=== PATIENT | male | born 2000 | race Caucasian/White ===

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

== ENCOUNTER 2020-07-12 12:57 | Emergency (ER) | payer SELFPAY ==
[2020-07-12] MEDS ORDERED: Ondansetron 4 MG Tab.DIS PO ONE (13:11)
--- NOTE | 2020-07-12 13:27 | EDM.PDOC ---
ED HPI GENERAL MEDICAL PROBLEM - General Chief Complaint: Gastrointestinal Problem Stated Complaint: THROWING UP Time Seen by Provider: 07/12/20 13:01 Source of Information: Reports: Patient History Limitations: Reports: No Limitations - History of Present Illness INITIAL COMMENTS - FREE TEXT/NARRATIVE: HISTORY AND PHYSICAL: History of present illness: Patient is a 20-year-old male who presents to the emergency room with complaints of nausea and vomiting. He states he woke up this morning around 3 AM nauseated and since trying to eat or drink he has had a few bouts of vomiting. He states he has occasional episodes of nausea and vomiting and has been seen in the emergency room for this in the past. "Everything ends up being fine". Patient denies any fever, chills, headache, change in vision, syncope or near syncope. Denies any chest pain, back pain, shortness of breath or cough. Denies any abdominal pain, diarrhea, constipation or dysuria. Has not noted any blood in urine or stool. Patient has been eating and drinking appropriately. Denies any recent alcohol or drug abuse. Review of systems: As per history of present illness and below otherwise all systems reviewed and negative. Past medical history: As per history of present illness and as reviewed below otherwise noncontributory. Surgical history: As per history of present illness and as reviewed below otherwise noncontributory. Social history: See social history for further information Family history: As per history of present illness and as reviewed below otherwise noncontributory. Physical exam: General: Well developed and well nourished. Alert and orientated x 3. Nontoxic in appearance and in no acute distress. Vital signs are stable and have been reviewed by me. Nursing notes were reviewed. HEENT: Atraumatic, normocephalic, pupils equal and reactive bilaterally, negative for conjunctival pallor or scleral icterus, mucous membranes moist, TMs normal bilaterally, throat clear, neck supple, nontender, trachea midline. No drooling or trismus noted. No meningeal signs. No hot potato voice noted. Lungs: Clear to auscultation bilaterally. No wheezes, rales, or rhonchi. Chest nontender. Normal work of breathing, no accessory muscles used. Heart: S1S2, regular rate and rhythm without overt murmur, gallops, or rubs. No JVD. No peripheral edema Abdomen: Soft, nondistended, nontender. Normoactive bowel sounds. Negative for masses or costovertebral tenderness. Skin: Intact, warm, dry. No lesions or rashes noted. Hematologic: No petechiae or purpra. Mucosa appropriate color and normal nail bed color and refill. Extremities: Atraumatic, moves all extremities per self without difficulty or deficits, negative for cords or calf pain. Neurovascular unremarkable. Neuro: Awake, alert, oriented. Cranial nerves II through XII unremarkable. Cerebellum unremarkable. Motor and sensory unremarkable throughout. Exam nonfocal. Psychiatric: Mood and affect are appropriate. Normal thought process. Answering questions appropriately. Notes: *This patient was seen and evaluated during the 2019 SARS-CoV-2 novel coronavirus pandemic period. Community viral transmission is ongoing at time of this encounter and the emergency department is operating under pandemic response procedures. Patient's physical exam is within normal limits. We did discuss doing diagnostics, IV fluids and IV Zofran. He states he prefers having Zofran ODT and declines wanting any diagnostics done. He reports he has been to the emergency room in the past for the same instance and "everything comes back normal". We will do Zofran and a PO challenge before pending discharge. Patient tolerated PO and is requesting discharge. Reassessment at the time of disposition demonstrates that the patient is in no acute distress. The patient is stable for discharge, counseling was provided and we discussed in great detail signs and symptoms that would prompt them to return to the Emergency Department. Medication, follow up and supportive care measures were reviewed and discussed. Voices understanding and is agreeable to plan of care. Denies any further questions or concerns at this time. Diagnostics: Declines Therapeutics: Zofran ODT Prescription: Zofran (#8) Impression: Nausea Plan: 1. Today you declined wanting any labs to be done today. If your symptoms should worsen, new symptoms develop or any of the signs and symptoms we discussed should arise please return to the emergency room or call 911 (if needed). 2. Zofran as needed for nausea. You can alternate Tylenol and ibuprofen as needed for pain and fever management. 3. We encourage you to follow up with your primary care provider and/or recommended specialist in the next few days for re-evaluation and further care/management. Definitive disposition and diagnosis as appropriate pending reevaluation and review of above. - Related Data Allergies Allergy/AdvReac Type Severity Reaction Status Date / Time No Known Allergies Allergy Verified 07/12/20 13:08 Home Meds: Home Meds . [No Known Home Meds] 07/10/19 [History] Past Medical History - Past Health History Medical/Surgical History: Denies Medical/Surgical History HEENT History: Reports: None Cardiovascular History: Reports: None Respiratory History: Reports: None Gastrointestinal History: Reports: None Genitourinary History: Reports: None Musculoskeletal History: Reports: None Neurological History: Reports: Concussion Psychiatric History: Reports: Anxiety Endocrine/Metabolic History: Reports: None Hematologic History: Reports: None Immunologic History: Reports: None Oncologic (Cancer) History: Reports: None Dermatologic History: Reports: None - Infectious Disease History Infectious Disease History: Reports: None - Past Surgical History HEENT Surgical History: Reports: Adenoidectomy, Tonsillectomy Social & Family History - Family History Family Medical History: No Pertinent Family History Cardiac: Reports: Hypertension Endocrine/Metabolic: Reports: Diabetes, type II - Tobacco Use Tobacco Use Status *Q: Never Tobacco User - Caffeine Use Caffeine Use: Reports: None - Recreational Drug Use Recreational Drug Use: No ED ROS GENERAL - Review of Systems Review Of Systems: Comprehensive ROS is negative, except as noted in HPI. ED EXAM, GI/ABD - Physical Exam Exam: See Below (See dictation) Course - Vital Signs Last Recorded V/S: Last Vital Signs Temp 97.5 F 07/12/20 13:09 Pulse 78 07/12/20 13:09 Resp 16 07/12/20 13:09 BP 121/51 L 07/12/20 13:09 Pulse Ox 98 07/12/20 13:09 - Orders/Labs/Meds Meds: Medications Discontinued Medications Generic Name Dose Route Start Last Admin Trade Name Freq PRN Reason Stop Dose Admin Ondansetron HCl 4 mg 07/12/20 13:11 Zofran Odt PO 07/12/20 13:12 ONETIME ONE Departure - Departure Time of Disposition: 13:27 Disposition: Home, Self-Care 01 Clinical Impression: Mild nausea - Discharge Information Instructions: Nausea, Adult, [id number] Referrals: PCP,Not In Area [Primary Care Provider] - Additional Instructions: The following information is given to patients seen in the emergency department who are being discharged to home. This information is to outline your options for follow-up care. We provide all patients seen in our emergency department with a follow-up referral. The need for follow-up, as well as the timing and circumstances, are variable depending upon the specifics of your emergency department visit. If you don't have a primary care physician on staff, we will provide you with a referral. We always advise you to contact your personal physician following an emergency department visit to inform them of the circumstance of the visit and for follow-up with them and/or the need for any referrals to a consulting specialist. The emergency department will also refer you to a specialist when appropriate. This referral assures that you have the opportunity for follow-up care with a specialist. All of these measure are taken in an effort to provide you with optimal care, which includes your follow-up. Under all circumstances we always encourage you to contact your private physician who remains a resource for coordinating your care. When calling for follow-up care, please make the office aware that this follow-up is from your recent emergency room visit. If for any reason you are refused follow-up, please contact the [facility] Emergency Department at and asked to speak to the emergency department charge nurse. [facility] [address] [place] [address] [id number] Thank you for choosing the [facility] emergency department in [place] for your medical needs today. It was a pleasure caring for you. Today you were seen in the emergency department for nausea and vomiting. 1. Today you declined wanting any labs to be done today. If your symptoms should worsen, new symptoms develop or any of the signs and symptoms we discussed should arise please return to the emergency room or call [phone] (if needed). 2. Zofran as needed for nausea. You can alternate Tylenol and ibuprofen as needed for pain and fever management. 3. We encourage you to follow up with your primary care provider and/or recommended specialist in the next few days for re-evaluation and further care/management. Sepsis Event Note (ED) - Evaluation Sepsis Screening Result: No Definite Risk - Focused Exam Vital Signs: Vital Signs Temp Pulse Resp BP Pulse Ox 07/12/20 13:09 97.5 F 78 16 121/51 L 98
[2020-07-12 13:57] VITALS: BP 120/70; PULSE 74
== END 2020-07-12 13:57 | disposition home or self-care (01) ==
LOC: MW.ED 12:57
DX: R11.2 Nausea with vomiting, unspecified (principal)
CPT/HCPCS: 99283; A9270

== ENCOUNTER 2020-07-30 15:00 | Emergency (ER) | payer SELFPAY ==
--- NOTE | 2020-07-30 15:23 | EDM.PDOC ---
ED HPI GENERAL MEDICAL PROBLEM - General Chief Complaint: Lower Extremity Injury/Pain Stated Complaint: RT ANKLE Time Seen by Provider: 07/30/20 15:03 Source of Information: Reports: Patient History Limitations: Reports: No Limitations - History of Present Illness INITIAL COMMENTS - FREE TEXT/NARRATIVE: Patient is a 20-year-old male presents to the ED with right ankle pain x1 day. Patient states that he was woke up by pain at 0300 on 07/29/20, states he was able to go back to sleep, and woke up with pain at 0700. He states he took 4 Aleve at this time without reduction of pain. Patient denies any inciting event while at work the previous day. Patient states his pain is constant, nonradiating, and is generalized in the right ankle. Pain is worst in the front of the ankle. Pain is provoked with any movement of the ankle and with bearing weight and wearing socks/shoes. Patient's family history is significant for gout. Right Ankle Pain Score (Numeric/FACES): 9 - Related Data Allergies Allergy/AdvReac Type Severity Reaction Status Date / Time No Known Allergies Allergy Verified 07/30/20 15:11 Home Meds: Home Meds Indomethacin 50 mg PO TID PRN 5 Days #15 capsule 07/30/20 [Rx] oxyCODONE HCl/Acetaminophen [Percocet 5-325 mg Tablet] 1 - 2 each PO Q6H PRN #18 tablet 07/30/20 [Rx] Past Medical History - Past Health History Medical/Surgical History: Denies Medical/Surgical History HEENT History: Reports: None Cardiovascular History: Reports: None Respiratory History: Reports: None Gastrointestinal History: Reports: None Genitourinary History: Reports: None Musculoskeletal History: Reports: None Neurological History: Reports: Concussion Psychiatric History: Reports: Anxiety Endocrine/Metabolic History: Reports: None Hematologic History: Reports: None Immunologic History: Reports: None Oncologic (Cancer) History: Reports: None Dermatologic History: Reports: None - Infectious Disease History Infectious Disease History: Reports: None - Past Surgical History HEENT Surgical History: Reports: Adenoidectomy, Tonsillectomy Social & Family History - Family History Family Medical History: No Pertinent Family History Cardiac: Reports: Hypertension Endocrine/Metabolic: Reports: Diabetes, type II - Tobacco Use Tobacco Use Status *Q: Current Every Day Tobacco User Years of Tobacco use: 5 Packs/Tins Daily: 0.5 - Caffeine Use Caffeine Use: Reports: None - Recreational Drug Use Recreational Drug Use: No Review of Systems - Review of Systems Review Of Systems: Comprehensive ROS is negative, except as noted in HPI. ED EXAM, GENERAL - Physical Exam Exam: See Below Exam Limited By: No Limitations General Appearance: Alert, WD/WN, No Apparent Distress Throat/Mouth: Normal Voice, No Airway Compromise Head: Atraumatic, Normocephalic Neck: Normal Inspection Respiratory/Chest: No Respiratory Distress, No Accessory Muscle Use Cardiovascular: Normal Peripheral Pulses, Regular Rate, Rhythm Extremities: Other (Range of motion of the right ankle is limited due to pain; however, patient is able to fully actively dorsiflex the right ankle with pain. Foot and calf for neurovascularly intact. Dorsalis pedis and posterior tibial pulses are strong and equal bilaterally.) Neurological: Alert, Normal Gait Psychiatric: Normal Affect, Normal Mood Skin Exam: Warm, Dry, Intact, Normal Color Course - Vital Signs Last Recorded V/S: Last Vital Signs Temp 97.1 F 07/30/20 15:12 Pulse 87 07/30/20 15:12 Resp 18 07/30/20 15:12 BP 140/64 07/30/20 15:12 Pulse Ox 98 07/30/20 15:12 - Orders/Labs/Meds Labs: Laboratory Tests 07/30/20 07/30/20 Range/Units 15:34 15:34 WBC 6.85 (4.0-11.0) K/uL RBC 4.46 L (4.50-5.90) M/uL Hgb 13.5 (13.0-17.0) g/dL Hct 40.9 (38.0-50.0) % MCV 91.7 (80.0-98.0) fL MCH 30.3 (27.0-32.0) pg MCHC 33.0 (31.0-37.0) g/dL RDW Std Deviation 47.4 (28.0-62.0) fl RDW Coeff of Velma 14 (11.0-15.0) % Plt Count 164 (150-400) K/uL MPV 11.70 (7.40-12.00) fL Neut % (Auto) 72.0 (48.0-80.0) % Lymph % (Auto) 22.9 (16.0-40.0) % Po[place]ett % (Auto) 4.7 (0.0-15.0) % Eos % (Auto) 0.1 (0.0-7.0) % Baso % (Auto) 0.3 (0.0-1.5) % Neut # (Auto) 4.9 (1.4-5.7) K/uL Lymph # (Auto) 1.6 (0.6-2.4) K/uL [place] # (Auto) 0.3 (0.0-0.8) K/uL Eos # (Auto) 0.0 (0.0-0.7) K/uL Baso # (Auto) 0.0 (0.0-0.1) K/uL Nucleated RBC % 0.0 /100WBC Nucleated RBCs # 0 K/uL Sodium 143 (136-148) mmol/L Potassium 3.7 (3.5-5.1) mmol/L Chloride 105 (98-107) mmol/L Carbon Dioxide 26.3 (21.0-32.0) mmol/L BUN 15 (7.0-18.0) mg/dL Creatinine 1.1 (0.8-1.3) mg/dL Est Cr Clr Drug Dosing 114.09 mL/min Estimated GFR (MDRD) > 60.0 ml/min Glucose 147 H (74-106) mg/dL Uric Acid 8.5 H (2.6-7.2) mg/dL Calcium 8.8 (8.5-10.1) mg/dL Meds: Medications Discontinued Medications Generic Name Dose Route Start Last Admin Trade Name Shemar PRN Reason Stop Dose Admin Indomethacin 50 mg 07/30/20 15:28 07/30/20 15:44 Indocin PO 07/30/20 15:29 50 mg ONETIME ONE Administration Oxycodone/Acetaminophen 2 tab 07/30/20 15:28 07/30/20 15:44 Percocet 325-5 Mg PO 07/30/20 15:29 Not Given ONETIME ONE - Re-Assessments/Exams Free Text/Narrative Re-Assessment/Exam: 07/30/20 15:37 We will get basic labs including uric acid level, will get x-ray of ankle. Will treat pain. We will follow up results and disposition. 07/30/20 16:28 Patient's labs remarkable for elevated uric acid level. Will discharge with pain medication and PMD follow-up. Departure - Departure Time of Disposition: 16:30 Disposition: Home, Self-Care 01 Condition: Good Clinical Impression: Gout Qualifiers: Gout site: ankle Gout etiology: unspecified cause Chronicity: acute Laterality: right Qualified Code(s): M10.9 - Gout, unspecified - Discharge Information Prescriptions: Indomethacin 50 mg PO TID PRN 5 Days #15 capsule PRN Reason: Pain oxyCODONE HCl/Acetaminophen [Percocet 5-325 mg Tablet] 1 - 2 each PO Q6H PRN #18 tablet PRN Reason: Pain Instructions: Low-Purine Eating Plan Referrals: PCP,None [Primary Care Provider] - Forms: ED Department Discharge Additional Instructions: Your joint pain is concerning for gout. Pain medicine has been sent to your pharmacy. You should follow-up with your primary care physician. For definitive diagnosis of gout you would need to have a joint aspiration which we typically do not do in the emergency department. The following information is given to patients seen in the emergency department who are being discharged to home. This information is to outline your options for follow-up care. We provide all patients seen in our emergency department with a follow-up referral. The need for follow-up, as well as the timing and circumstances, are variable depending upon the specifics of your emergency department visit. If you don't have a primary care physician on staff, we will provide you with a referral. We always advise you to contact your personal physician following an emergency department visit to inform them of the circumstance of the visit and for follow-up with them and/or the need for any referrals to a consulting specialist. The emergency department will also refer you to a specialist when appropriate. This referral assures that you have the opportunity for follow-up care with a specialist. All of these measure are taken in an effort to provide you with optimal care, which includes your follow-up. Under all circumstances we always encourage you to contact your private physician who remains a resource for coordinating your care. When calling for follow-up care, please make the office aware that this follow-up is from your recent emergency room visit. If for any reason you are refused follow-up, please contact the [facility] Emergency Department at and asked to speak to the emergency department charge nurse. Please follow up with your primary care physician. If you do not have a primary care physician, see below: [facility] [address] [place] [id number] [facility] [address] [place] [address] [facility] [address] [address] Sepsis Event Note (ED) - Evaluation Sepsis Screening Result: No Definite Risk - Focused Exam Vital Signs: Vital Signs Temp Pulse Resp BP Pulse Ox 07/30/20 15:12 97.1 F 87 18 140/64 98
[2020-07-30] MEDS ORDERED: Acetaminophen/oxyCODONE 325-5 MG Tab PO ONE (15:28)
[2020-07-30] MEDS ORDERED: Indomethacin 25 MG Cap PO ONE (15:28)
--- NOTE | 2020-07-30 15:58 | CR ---
INDICATION: Right ankle pain, no history of injury. TECHNIQUE: Right ankle radiographs, 3 views. COMPARISON: None available. FINDINGS: No dislocation or acute fracture. Ankle mortise congruent. Tibiotalar as well as the other imaged joint spaces are maintained. Soft tissues unremarkable. IMPRESSION: Negative right ankle radiographs. Dictated by Gene Brooke MD @ 07/30/2020 3:56:18 PM Dictated by: Gene Brooke MD @ 07/30/2020 15:56:24 (Electronically Signed)
[2020-07-30 16:19] LABS: BLOOD UREA NITROGEN,BUN 15 mg/dL (7.0-18.0); CARBON DIOXIDE,CO2 26.3 mmol/L (21.0-32.0); CHLORIDE,CL 105 mmol/L (98-107); GLUCOSE RANDOM 147 mg/dL (74-106); POTASSIUM,K 3.7 mmol/L (3.5-5.1); SODIUM,NA 143 mmol/L (136-148)
[2020-07-30 16:41] VITALS: BP 133/57; PULSE 77
== END 2020-07-30 16:42 | disposition home or self-care (01) ==
LOC: MW.ED 15:00
DX: M10.9 Gout, unspecified (principal); Z79.899 Other long term (current) drug therapy; Z72.0 Tobacco use
CPT/HCPCS: 36415; 73610; 80048; 84550; 85025; 99283; A9270

== ENCOUNTER 2020-10-29 19:05 | Emergency (ER) | payer SELFPAY ==
--- NOTE | 2020-10-29 19:12 | EDM.PDOC ---
ED HPI GENERAL MEDICAL PROBLEM - General Chief Complaint: General Stated Complaint: POSSIBLE FRACTURED RT HAND Time Seen by Provider: 10/29/20 19:07 Source of Information: Reports: Patient History Limitations: Reports: No Limitations - History of Present Illness INITIAL COMMENTS - FREE TEXT/NARRATIVE: 20-year-old male past medical history anxiety presents for right hand injury. Patient states that he was using his right hand at work to turn a wrench when he slipped hitting his hand with a large amount of force on a metal frame. He endorses pain in the dorsum of the right hand and right wrist. He notes pain with movement of the wrist. No loss of muscle strength. Denies any other injuries. Right Hand Pain Score (Numeric/FACES): 9 - Related Data Allergies Allergy/AdvReac Type Severity Reaction Status Date / Time No Known Allergies Allergy Verified 10/29/20 19:12 Home Meds: Home Meds Indomethacin 50 mg PO TID PRN 5 Days #15 capsule 07/30/20 [Rx] oxyCODONE HCl/Acetaminophen [Percocet 5-325 mg Tablet] 1 - 2 each PO Q6H PRN #18 tablet 07/30/20 [Rx] Past Medical History - Past Health History Medical/Surgical History: Denies Medical/Surgical History HEENT History: Reports: None Cardiovascular History: Reports: None Respiratory History: Reports: None Gastrointestinal History: Reports: None Genitourinary History: Reports: None Musculoskeletal History: Reports: None Neurological History: Reports: Concussion Psychiatric History: Reports: Anxiety Endocrine/Metabolic History: Reports: None Hematologic History: Reports: None Immunologic History: Reports: None Oncologic (Cancer) History: Reports: None Dermatologic History: Reports: None - Infectious Disease History Infectious Disease History: Reports: None - Past Surgical History HEENT Surgical History: Reports: Adenoidectomy, Tonsillectomy Social & Family History - Family History Family Medical History: No Pertinent Family History Cardiac: Reports: Hypertension Endocrine/Metabolic: Reports: Diabetes, type II - Caffeine Use Caffeine Use: Reports: None ED ROS GENERAL - Review of Systems Review Of Systems: Comprehensive ROS is negative, except as noted in HPI. ED EXAM, GENERAL - Physical Exam Exam: See Below Exam Limited By: No Limitations General Appearance: Alert, WD/WN, No Apparent Distress Throat/Mouth: Normal Voice, No Airway Compromise Head: Atraumatic, Normocephalic Neck: Normal Inspection Respiratory/Chest: No Respiratory Distress, No Accessory Muscle Use Cardiovascular: Normal Peripheral Pulses Extremities: Normal Inspection, Other (Normal right radial pulse, normal color and sensation of right hand, reduced record tester strength secondary to pain, no overt deformities, no significant swelling) Neurological: Alert, Normal Gait Psychiatric: Normal Affect, Normal Mood Skin Exam: Warm, Dry, Intact, Normal Color Course - Vital Signs Last Recorded V/S: Last Vital Signs Temp 97.5 F 10/29/20 19:12 Pulse 78 10/29/20 19:12 Resp 17 10/29/20 19:12 BP 134/52 L 10/29/20 19:12 Pulse Ox 97 10/29/20 19:12 - Orders/Labs/Meds Orders: Active Orders 24 hr Category Date Time Status Kodi Bandage [RC] ONETIME Care 10/29/20 20:01 Ordered Meds: Medications Discontinued Medications Generic Name Dose Route Start Last Admin Trade Name Freq PRN Reason Stop Dose Admin Ketorolac Tromethamine 30 mg 10/29/20 19:18 10/29/20 19:27 Ketorolac 30 Mg/Ml Sdv IM 10/29/20 19:19 30 mg ONETIME ONE Administration - Re-Assessments/Exams Free Text/Narrative Re-Assessment/Exam: 10/29/20 19:19 We will treat patient's pain. Will get x-ray imaging of the hand and the wrist. Follow-up results and disposition accordingly. 10/29/20 20:02 No evidence of fracture on x-ray imaging. Will Kodi wrap for comfort for likely wrist sprain/contusion. Departure - Departure Time of Disposition: 20:03 Disposition: Home, Self-Care 01 Condition: Good Clinical Impression: Wrist sprain Qualifiers: Encounter type: initial encounter Laterality: right Qualified Code(s): S63.501A - Unspecified sprain of right wrist, initial encounter Contusion Qualifiers: Encounter type: initial encounter Contusion area: wrist Laterality: right Qualified Code(s): S60.211A - Contusion of right wrist, initial encounter - Discharge Information Instructions: Contusion, Wrist Sprain, Adult Referrals: Wilson Lopez MD [Primary Care Provider] - Forms: ED Department Discharge Additional Instructions: Your x-ray imaging is unremarkable. There is no evidence of a fracture or dislocation. You are likely experiencing a sprain of the wrist as well as a contusion due to hitting your wrist on a metal object. If you are having continued pain after 1 week and you should follow-up with a primary care physician for repeat imaging as rarely we can miss fractures on initial imaging when they are subtle. You can take Tylenol and Motrin for pain. You can take 1000 mg of Tylenol every 6 hours as well as 600 mg of Motrin every 6 hours. You can take these together or alternate between the 2. We have placed your wrist in an Kodi bandage for comfort and stability. You can wear this for the next couple of days to help. The following information is given to patients seen in the emergency department who are being discharged to home. This information is to outline your options for follow-up care. We provide all patients seen in our emergency department with a follow-up referral. The need for follow-up, as well as the timing and circumstances, are variable depending upon the specifics of your emergency department visit. If you don't have a primary care physician on staff, we will provide you with a referral. We always advise you to contact your personal physician following an emergency department visit to inform them of the circumstance of the visit and for follow-up with them and/or the need for any referrals to a consulting specialist. The emergency department will also refer you to a specialist when appropriate. This referral assures that you have the opportunity for follow-up care with a specialist. All of these measure are taken in an effort to provide you with optimal care, which includes your follow-up. Under all circumstances we always encourage you to contact your private physi russel who remains a resource for coordinating your care. When calling for follow- up care, please make the office aware that this follow-up is from your recent emergency room visit. If for any reason you are refused follow-up, please contact the [facility] Emergency Department at and asked to speak to the emergency department charge nurse. Please follow up with your primary care physician. If you do not have a primary care physician, see below: [facility] [address] [place] [id number] [facility] [address] [place] [address] [facility] [address] [place] [id number] Sepsis Event Note (ED) - Focused Exam Vital Signs: Vital Signs Temp Pulse Resp BP Pulse Ox 10/29/20 19:12 97.5 F 78 17 134/52 L 97 - My Orders Last 24 Hours: My Active Orders 10/29/20 20:01 Kodi Bandage [RC] ONETIME - Assessment/Plan Last 24 Hours: My Active Orders 10/29/20 20:01 Kodi Bandage [RC] ONETIME
[2020-10-29] MEDS ORDERED: Ketorolac 30 MG/ML SDV IM ONE (19:18)
--- NOTE | 2020-10-29 19:57 | CR ---
Indication: Hit hand, pain at 4th-5th metacarpals. Technique: Right hand 3 views. Comparison: Right hand radiographs 08/07/2017. Findings: No acute fracture or dislocation. Joint spaces are well preserved. Ulna minus variance. Soft tissues are unremarkable. Impression: No acute findings. Dictated by Allie Oliveira MD @ 10/29/2020 7:54:[address] Allie Oliveira @ Oct 29 2020 7:54PM
[2020-10-29 20:26] VITALS: BP 110/42; PULSE 83
== END 2020-10-29 20:18 | disposition home or self-care (01) ==
LOC: MW.ED 19:05
DX: S63.501A Unspecified sprain of right wrist, initial encounter (principal); W22.8XXA Striking against or struck by other objects, initial encounter; Y99.0 Civilian activity done for income or pay
CPT/HCPCS: 73130; 96372; 99283; J1885

== ENCOUNTER 2020-12-06 22:12 | Emergency (ER) | payer SELFPAY ==
[2020-12-06 22:30] VITALS: BP 108/58; PULSE 94
[2020-12-06] MEDS ORDERED: Iopamidol 755 MG/ML 500 ML Multipack Bottle IVPUSH STA (23:31)
--- NOTE | 2020-12-07 00:06 | CT ---
CT ANGIOGRAM LEFT LOWER EXTREMITY WITH CONTRAST, 12/06/2020 COMPARISON: None. CLINICAL HISTORY: 20-year-old male with possible left lower extremity dislocation. Evaluate for fracture or arterial injury. TECHNIQUE: Following administration of intravenous contrast, contiguous axial images were obtained through the abdomen and pelvis and lower extremities with imaging centered on the left lower extremity. 2D sagittal and coronal reformatted sequences were submitted. 120 mL Isovue 370 administered. NON-VASCULAR FINDINGS: Abdomen: The visualized abdomen is unremarkable. No bowel obstruction. No free fluid or free air. No acute bony lytic or blastic lesions. Pelvis: The visualized pelvis is unremarkable. The urinary bladder is unremarkable in a minimally-distended state. The prostate and seminal vesicles appear symmetric. No definite lymphadenopathy. No acute bony lytic or blastic lesions. No fractures. Left Lower Extremity: No soft tissue mass is identified. No acute bony lytic or blastic lesions. VASCULATURE: Aorta/Inflow: The visualized abdominal aorta appears normal. The visualized common, internal, and external iliac arteries are widely patent. Left Lower Extremity: The common femoral artery is patent. Deep femoral artery is patent. Superficial femoral artery is patent. Popliteal artery is patent. Three-vessel runoff to the foot. IMPRESSION: 1. No evidence of arterial injury in the left lower extremity. 2. No acute fractures identified. Ang Aragon M.D. [email or web address] LAURA/[email or web address]/Dictated by: Ang Aragon MD @ 12/07/2020 12:29:00 PM (Electronically Signed)
[2020-12-07] MEDS ORDERED: Ketorolac 15 MG/ML SDV IM ONE (00:07)
--- NOTE | 2020-12-07 00:15 | EDM.PDOC ---
ED HPI GENERAL MEDICAL PROBLEM - General Chief Complaint: Lower Extremity Injury/Pain Stated Complaint: PAIN IN KNEE Time Seen by Provider: 12/06/20 22:14 - History of Present Illness INITIAL COMMENTS - FREE TEXT/NARRATIVE: CHIEF COMPLAINT(S): Left knee pain HISTORY OF PRESENT ILLNESS: This is a 20-year-old man and without any significant past medical history who comes to the emergency department with a chief complaint of left knee pain. The patient states that approximately 4 hours prior to arrival he dropped a tire on his left leg/knee after unloading it from his truck. He did not feel any pops or clicks but he is experiencing some pain on the medial side of his left knee. He states that it is painful to walk on it but is able to walk on it. He states that he has some tingling in his left lower extremity. He denies any swelling, redness or warmth. He denies any lacerations. He states that he has tried Aleve approximately an hour prior to arrival which did not help. He describes the pain as sharp/shooting pain. He rates his pain as 10 out of 10. He does not have any radiation of this pain. He states that movement exacerbates it. There are no relieving factors other than keeping it still. REVIEW OF SYSTEMS: Constitutional: Denies fever, chills. Eyes: Denies eye pain Ears, Nose, Mouth, & Throat: Denies earache Cardiovascular: Denies chest pain Respiratory: Denies shortness of breath Gastrointestinal: Denies Nausea, vomiting, diarrhea, hematochezia. Genitourinary: Denies hematuria Skin:Denies a rash MSK: Positive for left knee pain neurological: Denies blurred vision Psychiatric: Denies depression PAST MEDICAL HISTORY: As per history of present illness and as reviewed below otherwise noncontributory. SURGICAL HISTORY: As per history of present illness and as reviewed below other long noncontributory. SOCIAL HISTORY: As per history of present illness and as reviewed below otherwise noncontributory. FAMILY HISTORY: As per history of present illness and as reviewed below other long noncontributory. EXAMINATION OF ORGAN SYSTEMS/BODY AREAS: Constitutional: Blood pressure is 108/58, heart rate 84, respiratory rate 18 with an oxygen saturation 97% on room air. Temperature 36.8 General: Overall well-appearing man who is in no acute distress Psychiatric: Appropriate mood and affect. Eyes: No scleral icterus or conjunctival erythema ENMT: Moist mucous membranes. No pharyngeal erythema Cardiovascular: Regular, rate, and rhythm. No gallops, murmurs, or rubs. Bilateral upper extremity and lower extremity pulses symmetric and intact. No peripheral edema. No JVD. Respiratory: Lungs clear to auscultation bilaterally. No wheezes, rales, or rhonchi. Gastrointestinal: Soft, non-tender, non-distended. Normoactive bowel sounds Genitourinary: No suprapubic tenderness Musculoskeletal: The patient is able to extend at the knee without any difficulties, the patient is also able to flex without any difficulties. There is no obvious deformity of the left knee. There is minimal swelling. There is no evidence of any abrasions or lacerations. There is tenderness to palpation along the medial side of the left knee otherwise no joint line tenderness, negative varus and valgus and negative anterior and posterior drawer. There is tenderness on the posterior aspect of the left knee without any bruising. Skin: No lesions or abrasions. Neurological: Alert, GCS 15 strength equal bilaterally. When testing sensation the patient reports increased sensation in his left lower extremity. MEDICAL DECISION MAKING AND COURSE IN THE ED WITH INTERPRETATION/REVIEW OF DI AGNOSTIC STUDIES: This is a 20-year-old man without any significant past medical history who comes to the emergency department with left knee injury who is neurovascularly intact. At this time it is uncertain if the patient had a posterior knee dislocation given the posterior pain on examination. There is no obvious deformity or abnormality of the knee however we will obtain a CT angio of the left lower extremity which will all also evaluate for fracture. We will provide the patient with Toradol for pain relief. I do not believe any labs or other imaging are indicated. The radiological images were viewed by myself along with reading the report from the radiologist. Left lower extremity CTA reveals no CT evidence of arterial injury, significant stenosis or occlusion. No acute osseous injuries or bony lesions identified. After imaging I did discuss results with the patient. At this time I did discuss with him symptomatic treatment. I did discuss that he should follow-up with orthopedics within 5 to 7 days. He is to return for any new or worsening symptoms. He was amenable discharge at this time and had no further questions DISPOSITION: The patient was discharged home in stable condition. The patient will follow up with orthopedics in 5 to 7 days CONDITION: Fair PROCEDURES: None FINAL IMPRESSION(S)/DIAGNOSES: 1. Acute left knee injury Yonis Anaya M.D. left knee Pain Score (Numeric/FACES): 10 - Related Data Allergies Allergy/AdvReac Type Severity Reaction Status Date / Time No Known Allergies Allergy Verified 12/06/20 22:27 Home Meds: Home Meds Indomethacin 50 mg PO TID PRN 5 Days #15 capsule 07/30/20 [Rx] oxyCODONE HCl/Acetaminophen [Percocet 5-325 mg Tablet] 1 - 2 each PO Q6H PRN #18 tablet 07/30/20 [Rx] Past Medical History - Past Health History Medical/Surgical History: Denies Medical/Surgical History HEENT History: Reports: None Cardiovascular History: Reports: None Respiratory History: Reports: None Gastrointestinal History: Reports: None Genitourinary History: Reports: None Musculoskeletal History: Reports: None Neurological History: Reports: Concussion Psychiatric History: Reports: Anxiety Endocrine/Metabolic History: Reports: None Insulin Pump Model and Heating Element Repairer: None Hematologic History: Reports: None Immunologic History: Reports: None Oncologic (Cancer) History: Reports: None Dermatologic History: Reports: None - Infectious Disease History Infectious Disease History: Reports: None - Past Surgical History HEENT Surgical History: Reports: Adenoidectomy, Tonsillectomy Social & Family History - Family History Family Medical History: No Pertinent Family History Cardiac: Reports: Hypertension Endocrine/Metabolic: Reports: Diabetes, type II - Caffeine Use Caffeine Use: Reports: Energy Drinks - Recreational Drug Use Recreational Drug Use: Yes Drug Use in Last 12 Months: Yes Recreational Drug Type: Reports: Marijuana/Hashish Review of Systems - Review of Systems Review Of Systems: See Below ED EXAM, GENERAL - Physical Exam Exam: See Below Course - Vital Signs Last Recorded V/S: Last Vital Signs Temp 36.8 C 12/06/20 22:25 Pulse 94 12/06/20 22:25 Resp 18 12/06/20 22:25 BP 108/58 L 12/06/20 22:25 Pulse Ox 97 12/06/20 22:25 - Orders/Labs/Meds Meds: Medications Discontinued Medications Generic Name Dose Route Start Last Admin Trade Name Freq PRN Reason Stop Dose Admin Iopamidol 120 ml 12/06/20 23:31 12/06/20 23:32 Iopamidol 755 Mg/Ml 500 Ml Multipack Bottle IVPUSH 12/06/20 23:32 120 ml ONETIME STA Administration Ketorolac Tromethamine 30 mg 12/07/20 00:07 12/07/20 00:11 Ketorolac 15 Mg/Ml Sdv IM 12/07/20 00:08 30 mg ONETIME ONE Administration Departure - Departure Time of Disposition: 00:14 Disposition: Home, Self-Care 01 Condition: Fair Clinical Impression: Knee injury - Discharge Information *PRESCRIPTION DRUG MONITORING PROGRAM REVIEWED*: No *COPY OF PRESCRIPTION DRUG MONITORING REPORT IN PATIENT ANDREWS: No Instructions: Knee Sprain, Adult, [id number] Referrals: Wilson Lopez MD [Primary Care Provider] - Forms: ED Department Discharge Additional Instructions: You evaluate today on an emergent basis. At this time your imaging was negative. As discussed CT is unable to evaluate for tendon or ligament injury. I do recommend that you keep your left leg elevated, use ice, Tylenol, Motrin, and rest. You may use an Kodi bandage to compress the left knee to help with swelling although there is not a lot of swelling on examination today. I would like you to follow-up with orthopedics within 5 to 7 days for further ev aluation. If you have any worsening symptoms you are welcome to return to the emergency department especially if there is redness, warmth and worsening pain. Please use: Tylenol 500-1000mg every 6 hours (DO NOT TAKE MORE THAN 4000mg in 1 day) Ibuprofen 400mg every 6 hours (Take with food as it can cause ulcers, GI upset) Example schedule: 8:00 AM (Tylenol 500-1000mg) 11:00 AM (Ibuprofen 400mg) 2:00 PM (Tylenol 500-1000mg) 5:00 PM (Ibuprofen 400mg) In addition to Tylenol and Motrin you may use over the counter creams such as Voltaren Cream or Lidocaine Cream (Lidoderm) as needed 4 times a day for symptomatic relief. Ice the area 20 minutes 4 times per day [facility] Professional Building [address] [place] [address], [address] [place] [address] The patient is informed of any results of their evaluation and diagnostic workup and all questions are answered. They are given discharge instructions and return precautions. The patient is stable for discharge. The patient states they understand and agree with the plan and that they will return if their symptoms get worse or if they have any new concerns. The following information is given to patients seen in the emergency department who are being discharged to home. This information is to outline your options for follow-up care. We provide all patients seen in our emergency department with a follow-up referral. The need for follow-up, as well as the timing and circumstances, are variable depending upon the specifics of your emergency department visit. If you don't have a primary care physician on staff, we will provide you with a referral. We always advise you to contact your personal physician following an emergency department visit to inform them of the circumstance of the visit and for follow-up with them and/or the need for any referrals to a consulting specialist. The emergency department will also refer you to a specialist when appropriate. This referral assures that you have the opportunity for follow-up care with a specialist. All of these measure are taken in an effort to provide you with optimal care, which includes your follow-up. Under all circumstances we always encourage you to contact your private physician who remains a resource for coordinating your care. When calling for follow-up care, please make the office aware that this follow-up is from your recent emergency room visit. If for any reason you are refused follow-up, please contact the [facility] Emergency Department at and asked to speak to the emergency department charge nurse. Sepsis Event Note (ED) - Evaluation Sepsis Screening Result: No Definite Risk - Focused Exam Vital Signs: Vital Signs Temp Pulse Resp BP Pulse Ox 12/06/20 22:25 36.8 C 94 18 108/58 L 97
== END 2020-12-07 00:23 | disposition home or self-care (01) ==
LOC: MW.ED 22:12
DX: S89.92XA Unspecified injury of left lower leg, initial encounter (principal); W20.8XXA Other cause of strike by thrown, projected or falling object, initial encounter
CPT/HCPCS: 73706; 96372; 99283; J1885; Q9967

== ENCOUNTER 2021-01-12 12:59 | Emergency (ER) | payer SELFPAY ==
--- NOTE | 2021-01-12 13:07 | EDM.PDOC ---
ED HPI GENERAL MEDICAL PROBLEM - General Chief Complaint: Chest Pain Stated Complaint: CHEST PAIN Time Seen by Provider: 01/12/21 13:00 Source of Information: Reports: Patient History Limitations: Reports: No Limitations - History of Present Illness INITIAL COMMENTS - FREE TEXT/NARRATIVE: HISTORY AND PHYSICAL: History of present illness: Patient is a 21-year-old male who presents to the emergency room with complaints of midsternal chest pain, diarrhea since 0800. He states he woke up this morning and felt well, shortly after he developed midsternal chest pain. Nothing makes the pain better or worse. Denies any recent injury, trauma or falls. Pain is not reproducible with palpation. He states he does have a history of anxiety although does not feel anxious or have any triggers at this time. Patient denies any fever, chills, headache, change in vision, syncope or near syncope. Denies any back pain, shortness of breath or cough. Denies any abdominal pain, nausea, vomiting, constipation or dysuria. Has not noted any blood in urine or stool. Patient has been eating and drinking appropriately. Review of systems: As per history of present illness and below otherwise all systems reviewed and negative. Past medical history: As per history of present illness and as reviewed below otherwise noncontributory. Surgical history: As per history of present illness and as reviewed below otherwise noncontributory. Social history: See social history for further information Family history: As per history of present illness and as reviewed below otherwise nonc ontributory. Physical exam: General: Well developed and well nourished 21-year-old male. Alert and orientated x 3. Nontoxic in appearance and in no acute distress. Vital signs are stable and have been reviewed by me. Nursing notes were reviewed. HEENT: Atraumatic, normocephalic, pupils equal and reactive bilaterally, negative for conjunctival pallor or scleral icterus, mucous membranes moist, tr achea midline. No drooling or trismus noted. No meningeal signs. No hot potato voice noted. Lungs: Clear to auscultation bilaterally. No wheezes, rales, or rhonchi. Chest nontender. Normal work of breathing, no accessory muscles used. Heart: S1S2, regular rate and rhythm without overt murmur, gallops, or rubs. No JVD. No peripheral edema Abdomen: Soft, nondistended, nontender. Normoactive bowel sounds. Negative for masses or costovertebral tenderness. Skin: Intact, warm, dry. No lesions or rashes noted. Hematologic: No petechiae or purpra. Mucosa appropriate color and normal nail bed color and refill. Extremities: Atraumatic, moves all extremities per self without difficulty or deficits, negative for cords or calf pain. Neurovascular unremarkable. Neuro: Awake, alert, oriented. Cranial nerves II through XII unremarkable. Cerebellum unremarkable. Motor and sensory unremarkable throughout. Exam nonfocal. Psychiatric: Mood and affect are appropriate. Normal thought process. Answering questions appropriately. Notes: *This patient was seen and evaluated during the 2019 SARS-CoV-2 novel coronavirus pandemic period. Community viral transmission is ongoing at time of this encounter and the emergency department is operating under pandemic response procedures. Patient is a 21-year-old male who presents to the emergency room with complaints of midsternal chest pain and diarrhea since 8 AM this morning. He states it does feel like an anxiety attack although he has no current life stressors that would be causing this. Physical exam is unremarkable. Vital signs are stable. We will do a cardiac work-up on him including TSH and Covid. Lab work is unremarkable patient states he feels anxious still. I will give him a dose of Ativan p.o. and reassess. Patient does feel improved. He does have a ride home. I have talked with the patient about today's findings, in addition to providing specific details for plan of care. Reassessment at the time of disposition demonstrates that the patient is in no acute distress. The patient is stable for discharge, counseling was provided and we discussed in great detail signs and symptoms that would prompt them to return to the Emergency Department. Medication, follow up and supportive care measures were reviewed and discussed. Voices understanding and is agreeable to plan of care. Denies any further questions or concerns at this time. Diagnostics: CBC, CMP, TSH, troponin, EKG, chest x-ray, COVID-19 Therapeutics: IV fluid, Ativan p.o. Prescription: None Impression: Nonspecific chest pain Plan: 1. You were evaluated today on an emergent basis. Your lab work, EKG and chest x-ray are normal. 2. You can alternate Tylenol and ibuprofen as needed for pain and fever management. 3. We encourage you to follow up with your primary care provider and/or recommended specialist in the next few days for re-evaluation and further care/management. 4. If your symptoms should worsen, new symptoms develop or any of the signs and symptoms we discussed should arise please return to the emergency room or call 911 (if needed). Definitive disposition and diagnosis as appropriate pending reevaluation and review of above. chest Pain Score (Numeric/FACES): 8 - Related Data Allergies Allergy/AdvReac Type Severity Reaction Status Date / Time No Known Allergies Allergy Verified 01/12/21 13:27 Home Meds: Home Meds . [No Known Home Meds] 01/12/21 [History] Past Medical History - Past Health History Medical/Surgical History: Denies Medical/Surgical History HEENT History: Reports: None Cardiovascular History: Reports: None Respiratory History: Reports: None Gastrointestinal History: Reports: None Genitourinary History: Reports: None Musculoskeletal History: Reports: None Neurological History: Reports: Concussion Psychiatric History: Reports: Anxiety Endocrine/Metabolic History: Reports: None Insulin Pump Model and Chicken Raiser: None Hematologic History: Reports: None Immunologic History: Reports: None Oncologic (Cancer) History: Reports: None Dermatologic History: Reports: None - Infectious Disease History Infectious Disease History: Reports: None - Past Surgical History HEENT Surgical History: Reports: Adenoidectomy, Tonsillectomy Social & Family History - Family History Family Medical History: No Pertinent Family History Cardiac: Reports: Hypertension Endocrine/Metabolic: Reports: Diabetes, type II - Caffeine Use Caffeine Use: Reports: Energy Drinks ED ROS GENERAL - Review of Systems Review Of Systems: Comprehensive ROS is negative, except as noted in HPI. ED EXAM, GENERAL - Physical Exam Exam: See Below (See dictation) Course - Vital Signs Last Recorded V/S: Last Vital Signs Temp 98.2 F 01/12/21 13:12 Pulse 88 01/12/21 13:12 Resp 18 01/12/21 13:12 BP 123/80 01/12/21 13:12 Pulse Ox 98 01/12/21 13:12 - Orders/Labs/Meds Orders: Active Orders 24 hr Category Date Time Status EKG Documentation Completion [RC] STAT Care 01/12/21 13:00 Active CORONAVIRUS COVID-19 IGLESIA [MOLEC] Stat Lab 01/12/21 13:30 Received Labs: Laboratory Tests 08/04/21 08/04/21 Range/Units 13:05 13:05 WBC 5.70 (4.0-11.0) K/uL RBC 4.61 (4.50-5.90) M/uL Hgb 13.8 (13.0-17.0) g/dL Hct 40.9 (38.0-50.0) % MCV 88.7 (80.0-98.0) fL MCH 29.9 (27.0-32.0) pg MCHC 33.7 (31.0-37.0) g/dL RDW Std Deviation 45.6 (28.0-62.0) fl RDW Coeff of Velma 14 (11.0-15.0) % Plt Count 200 (150-400) K/uL MPV 11.00 (7.40-12.00) fL Neut % (Auto) 58.9 (48.0-80.0) % Lymph % (Auto) 33.2 (16.0-40.0) % [place] % (Auto) 6.8 (0.0-15.0) % Eos % (Auto) 0.4 (0.0-7.0) % Baso % (Auto) 0.7 (0.0-1.5) % Neut # (Auto) 3.4 (1.4-5.7) K/uL Lymph # (Auto) 1.9 (0.6-2.4) K/uL [place] # (Auto) 0.4 (0.0-0.8) K/uL Eos # (Auto) 0.0 (0.0-0.7) K/uL Baso # (Auto) 0.0 (0.0-0.1) K/uL Nucleated RBC % 0.0 /100WBC Nucleated RBCs # 0 K/uL Sodium 143 (136-148) mmol/L Potassium 4.3 (3.5-5.1) mmol/L Chloride 107 (98-107) mmol/L Carbon Dioxide 27.3 (21.0-32.0) mmol/L BUN 9 (7.0-18.0) mg/dL Creatinine 1.0 (0.8-1.3) mg/dL Est Cr Clr Drug Dosing 82.64 mL/min Estimated GFR (MDRD) > 60.0 ml/min Glucose 93 (74-106) mg/dL Calcium 9.1 (8.5-10.1) mg/dL Total Bilirubin 0.3 (0.2-1.0) mg/dL AST 20 (15-37) IU/L ALT 26 (14-63) IU/L Alkaline Phosphatase 60 (46-116) U/L Troponin I < 0.050 (0.000-0.056) ng/mL Total Protein 7.7 (6.4-8.2) g/dL Albumin 4.5 (3.4-5.0) g/dL Globulin 3.2 (2.6-4.0) g/dL Albumin/Globulin Ratio 1.4 (0.9-1.6) TSH, Ultra Sensitive 1.34 (0.36-3.74) uIU/mL Meds: Medications Discontinued Medications Generic Name Dose Route Start Last Admin Trade Name Freq PRN Reason Stop Dose Admin Sodium Chloride 1,000 mls @ 999 mls/hr 01/12/21 13:09 01/12/21 13:18 Normal Saline IV 01/12/21 14:09 999 mls/hr STAT ONE Administration Ketorolac Tromethamine 30 mg 01/12/21 13:10 01/12/21 13:18 Ketorolac 30 Mg/Ml Sdv IVPUSH 01/12/21 13:11 30 mg ONETIME ONE Administration Lorazepam 1 mg 01/12/21 14:08 Lorazepam 1 Mg Tab PO 01/12/21 14:09 ONETIME ONE Departure - Departure Time of Disposition: 14:11 Disposition: Home, Self-Care 01 Clinical Impression: Nonspecific chest pain Instructions: Nonspecific Chest Pain, Adult, [id number] Forms: ED Department Discharge Additional Instructions: The following information is given to patients seen in the emergency department who are being discharged to home. This information is to outline your options for follow-up care. We provide all patients seen in our emergency department with a follow-up referral. The need for follow-up, as well as the timing and circumstances, are variable depending upon the specifics of your emergency department visit. If you don't have a primary care physician on staff, we will provide you with a referral. We always advise you to contact your personal physician following an emergency department visit to inform them of the circumstance of the visit and for follow-up with them and/or the need for any referrals to a consulting specialist. The emergency department will also refer you to a specialist when appropriate. This referral assures that you have the opportunity for follow-up care with a specialist. All of these measure are taken in an effort to provide you with optimal care, which includes your follow-up. Under all circumstances we always encourage you to contact your private physician who remains a resource for coordinating your care. When calling for follow-up care, please make the office aware that this follow-up is from your recent emergency room visit. If for any reason you are refused follow-up, please contact the [facility] Emergency Department at and asked to speak to the emergency department charge nurse. [facility] [address] [place] [id number] [place] [address] Thank you for choosing the [facility] emergency department in [place] for your medical needs today. It was a pleasure caring for you. Today you were seen in the emergency department for chest pain. 1. You were evaluated today on an emergent basis. Your lab work, EKG and chest x-ray are normal. 2. You can alternate Tylenol and ibuprofen as needed for pain and fever management. 3. We encourage you to follow up with your primary care provider and/or recommended specialist in the next few days for re-evaluation and further care/management. 4. If your symptoms should worsen, new symptoms develop or any of the signs and symptoms we discussed should arise please return to the emergency room or call 911 (if needed). Sepsis Event Note (ED) - Focused Exam Vital Signs: Vital Signs Temp Pulse Resp BP Pulse Ox 01/12/21 13:12 98.2 F 88 18 123/80 98 - My Orders Last 24 Hours: My Active Orders 01/12/21 13:00 EKG Documentation Completion [RC] STAT 01/12/21 13:30 CORONAVIRUS COVID-19 IGLESIA [MOLEC] Stat - Assessment/Plan Last 24 Hours: My Active Orders 01/12/21 13:00 EKG Documentation Completion [RC] STAT 01/12/21 13:30 CORONAVIRUS COVID-19 IGLESIA [MOLEC] Stat
[2021-01-12] MEDS ORDERED: Sodium Chloride 0.9% 1,000 ML IV ONE (13:09)
[2021-01-12] MEDS ORDERED: Ketorolac 30 MG/ML SDV IVPUSH ONE (13:10)
--- NOTE | 2021-01-12 13:26 | PCM.EKG ---
#1 Interpretation EKG Date: 01/12/21 Time: 13:05 Rhythm: NSR Rate (Beats/Min): 81 [place]: Normal P-Wave: Present QRS: Normal ST-T: Normal QT: Normal AK/PQ Interval: 153 EKG Interpretation Comments: normal EKG, non-ischemic
--- NOTE | 2021-01-12 13:44 | CR ---
INDICATION: Chest pain TECHNIQUE: Chest 1 views COMPARISON: January 10, 2019 FINDINGS: Cardiovascular and mediastinum: Heart size and vasculature are normal in caliber and appearance. Lungs and pleural spaces: Lungs are clear. No sign of infiltrate or mass. No sign of pleural effusion. No pneumothorax. Bones and soft tissues: No significant findings. IMPRESSION: No acute findings and no significant changes from the prior exam. No finding to explain chest pain. Dictated by Honorio Gutierrez MD @ 01/12/2021 1:43:[address] Honorio Gutierrez @ Jan 12 2021 1:43PM
[2021-01-12 13:52] LABS: BLOOD UREA NITROGEN,BUN 9 mg/dL (7.0-18.0); CARBON DIOXIDE,CO2 27.3 mmol/L (21.0-32.0); CHLORIDE,CL 107 mmol/L (98-107); GLUCOSE RANDOM 93 mg/dL (74-106); POTASSIUM,K 4.3 mmol/L (3.5-5.1); SODIUM,NA 143 mmol/L (136-148)
[2021-01-12] MEDS ORDERED: LORazepam 1 MG Tab PO ONE (14:08)
[2021-01-12 14:36] VITALS: BP 116/70; PULSE 91
== END 2021-01-12 14:30 | disposition home or self-care (01) ==
LOC: MW.ED 12:59
DX: R07.2 Precordial pain (principal); Z20.822 Contact with and (suspected) exposure to COVID-19
CPT/HCPCS: 36415; 71045; 80053; 84443; 84484; 85025; 87635; 93005; 96374; 99285; A9270; J1885; J7030; U0002

== ENCOUNTER 2021-10-19 11:07 | Emergency (ER) | payer OTHER ==
[2021-10-19] MEDS ORDERED: Sodium Chloride 0.9% 10 ML Syringe FLUSH PRN (11:34)
[2021-10-19] MEDS ORDERED: Sodium Chloride 0.9% 2.5 ML Syringe FLUSH PRN (11:34)
[2021-10-19 12:33] LABS: BLOOD UREA NITROGEN,BUN 13 mg/dL (7.0-18.0); CARBON DIOXIDE,CO2 26.2 mmol/L (21.0-32.0); CHLORIDE,CL 106 mmol/L (98-107); GLUCOSE RANDOM 96 mg/dL (74-106); LIPASE 54 U/L (73-393); POTASSIUM,K 4.3 mmol/L (3.5-5.1); SODIUM,NA 142 mmol/L (136-148)
[2021-10-19] MEDS ORDERED: Iopamidol 755 MG/ML 500 ML Multipack Bottle IVPUSH STA (13:06)
[2021-10-19] MEDS ORDERED: Morphine 4 MG/ML VIAL IVPUSH ONE (13:52)
[2021-10-19] MEDS ORDERED: Ondansetron 4 MG/2 ML SDV IVPUSH ONE (13:52)
[2021-10-19 16:24] VITALS: BP 120/97; PULSE 58
== END 2021-10-19 15:10 | disposition home or self-care (01) ==
LOC: MW.ED 11:07
DX: K62.5 Hemorrhage of anus and rectum (principal); R10.84 Generalized abdominal pain
CPT/HCPCS: 36415; 74177; 80053; 81003; 83690; 85014; 85018; 85025; 96374; 96375; 99285; J2270; J2405; J3490; Q9967

== ENCOUNTER 2022-04-21 05:21 | Emergency (ER) | payer OTHER ==
[2022-04-21 05:31] VITALS: BP 123/69; PULSE 76
== END 2022-04-21 05:39 | disposition home or self-care (01) ==
LOC: MW.ED 05:21
DX: K04.7 Periapical abscess without sinus (principal)
CPT/HCPCS: 99282

== ENCOUNTER 2022-05-01 09:06 | Emergency (ER) | payer OTHER ==
[2022-05-01] MEDS ORDERED: Morphine 2 MG/ML SYRINGE IM ONE (09:20)
[2022-05-01 11:22] VITALS: BP 113/65; PULSE 63
== END 2022-05-01 11:22 | disposition home or self-care (01) ==
LOC: MW.ED 09:06
DX: S49.91XA Unspecified injury of right shoulder and upper arm, initial encounter (principal); W01.0XXA Fall on same level from slipping, tripping and stumbling without subsequent striking against object, initial encounter
CPT/HCPCS: 73080; 73090; 73130; 96372; 99283; J2270

== ENCOUNTER 2022-05-08 09:56 | Emergency (ER) | payer OTHER ==
[2022-05-08 11:00] LABS: CORONAVIRUS COVID-19 NAA NEGATIVE (NEGATIVE); INFLUENZA A NAA NEGATIVE (NEGATIVE); INFLUENZA B NAA NEGATIVE (NEGATIVE); RESPIRATORY SYNCYTIAL VIR NAA NEGATIVE (NEGATIVE)
[2022-05-08 11:05] VITALS: BP 123/45; PULSE 61
== END 2022-05-08 11:19 | disposition home or self-care (01) ==
LOC: MW.ED 09:56
DX: R05.9 Cough, unspecified (principal); R19.7 Diarrhea, unspecified; R50.9 Fever, unspecified; Z72.0 Tobacco use; Z20.822 Contact with and (suspected) exposure to COVID-19
CPT/HCPCS: 0241U; 99283

== ENCOUNTER 2022-05-29 14:45 | Emergency (ER) | payer OTHER ==
[2022-05-29 15:46] VITALS: BP 135/72; PULSE 92
[2022-05-29] MEDS ORDERED: Ketorolac 60 MG/2 ML SDV IM ONE (16:05)
[2022-05-29] MEDS ORDERED: Acetaminophen/HYDROcodone 325-5 MG Tab PO ONE (16:05)
== END 2022-05-29 17:10 | disposition home or self-care (01) ==
LOC: MW.ED 14:45
DX: S02.5XXA Fracture of tooth (traumatic), initial encounter for closed fracture (principal); F17.210 Nicotine dependence, cigarettes, uncomplicated; W22.09XA Striking against other stationary object, initial encounter
CPT/HCPCS: 96372; 99282; J1885

== ENCOUNTER 2022-12-14 14:46 | Emergency (ER) | payer OTHER ==
[2022-12-14] MEDS ORDERED: Tetracaine HCl/PF 0.5% 4 ML Bottle EYELF STA (16:08)
[2022-12-14 17:13] VITALS: BP 130/64; PULSE 103
== END 2022-12-14 17:13 | disposition home or self-care (01) ==
LOC: MW.ED 14:46
DX: S05.02XA Injury of conjunctiva and corneal abrasion without foreign body, left eye, initial encounter (principal); F17.210 Nicotine dependence, cigarettes, uncomplicated
CPT/HCPCS: 99283; J3490

== ENCOUNTER 2023-12-03 10:00 | Emergency (ER) | payer OTHER ==
[2023-12-03 10:44] LABS: BASOPHILS ABSOLUTE AUTO 0.05 K/uL (0.00-0.20); BASOPHILS PERCENT AUTO 0.8 % (0.0-1.0); EOSINOPHILS ABSOLUTE AUTO 0.03 K/uL (0.00-0.45); EOSINOPHILS PERCENT AUTO 0.5 % (0.0-6.0); HEMATOCRIT 41.8 % (42.0-52.0); HEMOGLOBIN 14.3 g/dL (14.0-18.0); IMMATURE GRAN ABSOLUTE AUTO 0.02 K/uL (0.00-0.05); IMMATURE GRAN PERCENT AUTO 0.3 % (0.0-0.4); LYMPHOCYTES ABSOLUTE AUTO 1.81 K/uL (1.00-4.80); LYMPHOCYTES PERCENT AUTO 27.3 % (24.0-44.0); MEAN CORPUSCULAR HEMOGLOBIN 30.1 pg (28.0-32.0); MEAN CORPUSCULAR HGB CONC 34.2 g/dL (32.0-36.0); MEAN PLATELET VOLUME 10.7 fL (9.4-12.4); MONOCYTES ABSOLUTE AUTO 0.55 K/uL (0.00-0.80); MONOCYTES PERCENT AUTO 8.3 % (0.0-8.0); NEUTROPHILS ABSOLUTE AUTO 4.16 K/uL (1.80-7.70); NEUTROPHILS PERCENT AUTO 62.8 % (41.0-71.0); PLATELET COUNT,PLT 215 K/uL (150-400); RED BLOOD CELL COUNT 4.75 M/uL (4.52-5.90); WHITE BLOOD CELL COUNT,WBC 6.62 K/uL (3.9-11.3)
[2023-12-03] MEDS: Sodium Chloride 0.9% 1,000 ML IV STA (10:58)
[2023-12-03] MEDS: Ketorolac 30 MG/ML SDV IVPUSH STA (10:58)
[2023-12-03 11:00] LABS: INR 0.97 (0.86-1.11)
[2023-12-03 11:04] LABS: A/G RATIO 1.1 (0.9-1.6); ALBUMIN 4.1 g/dL (3.4-5.0); BILIRUBIN TOTAL 0.3 mg/dL (0.2-1.0); CALCIUM 9.4 mg/dL (8.5-10.1); CREATININE 1.1 mg/dL (0.8-1.3); EST CRCL DRUG DOSING (CG) 111.24 mL/min; POTASSIUM,K 4.5 mmol/L (3.5-5.1); PROTEIN TOTAL,TP 7.7 g/dL (6.4-8.2)
[2023-12-03] MEDS: Ondansetron 4 MG/2 ML SDV IVPUSH STA (11:10)
[2023-12-03] MEDS: Morphine 4 MG/ML Syringe IVPUSH STA (11:10)
[2023-12-03] MEDS: Iopamidol 755 MG/ML 500 ML Multipack Bottle IVPUSH STA (11:47)
[2023-12-03 12:49] VITALS: BP 113/61; PULSE 61
== END 2023-12-03 12:49 | disposition home or self-care (01) ==
LOC: MW.ED 10:00
DX: K52.9 Noninfective gastroenteritis and colitis, unspecified (principal); F17.210 Nicotine dependence, cigarettes, uncomplicated; Z79.899 Other long term (current) drug therapy; Z75.8 Other problems related to medical facilities and other health care
CPT/HCPCS: 36415; 74177; 80053; 83690; 85025; 85610; 96361; 96374; 96375; 99284; J1885; J2270; J2405; J7030; Q9967

== ENCOUNTER 2024-08-21 13:02 | Emergency (ER) | payer SELFPAY ==
[2024-08-21 13:23] VITALS: BP 113/45
[2024-08-21 13:23] LABS: BASOPHILS ABSOLUTE AUTO 0.02 K/uL (0.00-0.20); BASOPHILS PERCENT AUTO 0.1 % (0.0-1.0); EOSINOPHILS ABSOLUTE AUTO 0.02 K/uL (0.00-0.45); EOSINOPHILS PERCENT AUTO 0.1 % (0.0-6.0); HEMATOCRIT 47.6 % (42.0-52.0); HEMOGLOBIN 16.2 g/dL (14.0-18.0); IMMATURE GRAN ABSOLUTE AUTO 0.05 K/uL (0.00-0.05); IMMATURE GRAN PERCENT AUTO 0.4 % (0.0-0.4); LYMPHOCYTES ABSOLUTE AUTO 0.33 K/uL (1.00-4.80); LYMPHOCYTES PERCENT AUTO 2.4 % (24.0-44.0); MEAN CORPUSCULAR HEMOGLOBIN 29.9 pg (28.0-32.0); MEAN CORPUSCULAR VOLUME 87.8 fL (83.0-99.0); MONOCYTES ABSOLUTE AUTO 0.51 K/uL (0.00-0.80); MONOCYTES PERCENT AUTO 3.7 % (0.0-8.0); NEUTROPHILS ABSOLUTE AUTO 12.71 K/uL (1.80-7.70); NEUTROPHILS PERCENT AUTO 93.3 % (41.0-71.0); PLATELET COUNT,PLT 176 K/uL (150-400); RED BLOOD CELL COUNT 5.42 M/uL (4.52-5.90); WHITE BLOOD CELL COUNT,WBC 13.64 K/uL (3.9-11.3)
[2024-08-21] MEDS: Ketorolac 30 MG/ML SDV IVPUSH ONE (13:26)
[2024-08-21] MEDS: Sodium Chloride 0.9% 1,000 ML IV ONE ×2 (13:26→14:36)
[2024-08-21] MEDS: Ondansetron 4 MG/2 ML SDV IVPUSH ONE (13:26)
[2024-08-21] MEDS: Iopamidol 755 MG/ML 500 ML Multipack Bottle IVPUSH STA (13:40)
[2024-08-21 13:52] LABS: A/G RATIO 1.3 (0.9-1.6); ALBUMIN 4.8 g/dL (3.4-5.0); BILIRUBIN TOTAL 0.7 mg/dL (0.2-1.0); CALCIUM 9.4 mg/dL (8.5-10.1); CARBON DIOXIDE,CO2 23.6 mmol/L (21.0-32.0); CREATININE 1.1 mg/dL (0.8-1.3); EST CRCL DRUG DOSING (CG) 110.29 mL/min; POTASSIUM,K 4.3 mmol/L (3.5-5.1); PROTEIN TOTAL,TP 8.4 g/dL (6.4-8.2)
[2024-08-21] MEDS: Morphine 4 MG/ML Syringe IVPUSH PRN (14:17)
[2024-08-21] MEDS: droPERidol 2.5 MG/ML SDV IVPUSH ONE (14:32)
[2024-08-21 15:07] VITALS: PULSE 76
== END 2024-08-21 15:06 | disposition home or self-care (01) ==
LOC: MW.ED 13:02
DX: K52.9 Noninfective gastroenteritis and colitis, unspecified (principal); Z79.899 Other long term (current) drug therapy
CPT/HCPCS: 36415; 74177; 80053; 83690; 85025; 87428; 96361; 96374; 96375; 99284; J1790; J1885; J2270; J2405; J7030; Q9967

== ENCOUNTER 2024-12-15 13:38 | Emergency (ER) | payer SELFPAY ==
[2024-12-15] MEDS: Ketorolac 30 MG/ML SDV IM ONE (14:56)
[2024-12-15 15:24] VITALS: BP 128/79; PULSE 85
== END 2024-12-15 15:03 | disposition home or self-care (01) ==
LOC: MW.ED 13:38
DX: M10.9 Gout, unspecified (principal); Z79.899 Other long term (current) drug therapy
CPT/HCPCS: 96372; 99283; J1100; J1885

== ENCOUNTER 2025-04-19 00:05 | Emergency (ER) | payer SELFPAY ==
[2025-04-19] MEDS: Ketorolac 30 MG/ML SDV IM ONE (00:30)
[2025-04-19 02:00] VITALS: BP 106/73; PULSE 88
== END 2025-04-19 01:59 | disposition home or self-care (01) ==
LOC: MW.ED 00:05
DX: M10.9 Gout, unspecified (principal); F17.200 Nicotine dependence, unspecified, uncomplicated
CPT/HCPCS: 96372; 99283; A9270; J1885

== ENCOUNTER 2025-04-27 07:14 | Emergency (ER) | payer OTHER ==
[2025-04-27 07:26] VITALS: BP 149/76; PULSE 71
[2025-04-27] MEDS: Ketorolac 60 MG/2 ML SDV IM ONE (07:35)
[2025-04-27] MEDS: Lidocaine/Epineph/Tetracaine 3 ML Syringe TOP ONE (07:35)
== END 2025-04-27 08:59 | disposition home or self-care (01) ==
LOC: MW.ED 07:14
DX: S01.81XA Laceration without foreign body of other part of head, initial encounter (principal); W22.8XXA Striking against or struck by other objects, initial encounter
CPT/HCPCS: 70486; 96372; 99283; A9270; J1885